=== PATIENT | female | born 1960 | race African-American/Black ===

== ENCOUNTER 2017-02-13 02:46 | Emergency (ER) | payer OTHER ==
[2017-02-13] MEDS ORDERED: TORADOL IM ONE (03:50)
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
[2017-02-13] MEDS ORDERED: ULTRAM PO ONE (05:21)
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
[2017-02-13 05:52] VITALS: BP 115/71
--- NOTE | 2017-02-13 07:30 | XRay Report ---
ROUTINE CHEST, TWO VIEWS: HISTORY: chest pain. The trachea, heart, mediastinal contour, lung mejia and bony thorax are unremarkable. IMPRESSION: Unremarkable chest x-ray.
== END 2017-02-13 06:22 | disposition home or self-care (01) ==
LOC: ED 02:46
DX: S20.219A Contusion of unspecified front wall of thorax, initial encounter (principal); S13.9XXA Sprain of joints and ligaments of unspecified parts of neck, initial encounter; V89.2XXA Person injured in unspecified motor-vehicle accident, traffic, initial encounter; Y93.89 Activity, other specified; Y92.89 Other specified places as the place of occurrence of the external cause; Y99.8 Other external cause status
CPT/HCPCS: 70450; 71020; 72125; 93005; 93010; 96372; 99284; J1885